=== PATIENT | female | born 1980 | race Caucasian/White ===

== ENCOUNTER 2021-11-07 09:09 | Outpatient (CLI) | payer BC, SELFPAY ==
--- NOTE | ~2021-11-07 | US_ITS ---
US abdomen limited INDICATION: Right upper quadrant pain. Epigastric pain. PROCEDURE: Realtime right upper abdominal ultrasound. COMPARISON: No prior studies for comparison. FINDINGS: The pancreas is normal without focal mass or pancreatic ductal dilation. Liver echotexture is increased, consistent with fatty infiltration. There is normal directional flow in the portal ve in. There are multiple gallstones. Common bile duct measures 5 mm. No sonographic Spence's sign. IMPRESSION: 1: Cholelithiasis. 2: Hepatic steatosis. Reviewed, dictated and finalized at location A. [facility] PATH[facility]
== END 2021-11-07 09:10 | disposition home or self-care (01) ==
LOC: ANHIMG 09:16
PROVIDERS: Visit Provider Nurse Practitioner Family
DX: R10.9 Unspecified abdominal pain (principal); K80.20 Calculus of gallbladder without cholecystitis without obstruction; K76.0 Fatty (change of) liver, not elsewhere classified
CPT/HCPCS: 76705

== ENCOUNTER → 2021-11-28 03:16 | Outpatient (CLI) | payer BC, SELFPAY ==
[2021-11-28 11:02] LABS: SARS-CoV-2 RNA PCR Negative
== END ==
PROVIDERS: Visit Provider Internal Medicine Gastroenterology
DX: Z01.812 Encounter for preprocedural laboratory examination (principal); Z20.822 Contact with and (suspected) exposure to COVID-19
CPT/HCPCS: C9803; U0003; U0005

== ENCOUNTER 2021-12-01 01:15 | Day surgery (SDC) | payer BC, SELFPAY ==
[2021-11-24 10:13] VITALS: BMI 35.2
--- NOTE | 2021-12-01 07:12 | WPDANESEPPF ---
Anes - Initial Pre Proc Eval Procedure: Operation Date: 12/01/21 11:00 Proposed Procedures p Esophagogastroduodenoscopy - Thiago Polanco MD <Willy Quesada, DO - Last Filed: 12/01/21 10:52> Date/Time: 12/01/21 07:12 <Willy Quesada DO - Last Filed: 12/01/21 10:52> Surgeon: Thiago Polanco MD <Willy Quesada DO - Last Filed: 12/01/21 10:52> Pre Op Diagnosis: gerd <Willy Quesada DO - Last Filed: 12/01/21 10:52> Patient Data Age: 41 Gender: F Height: 1.7 m Weight: 102.2 kg <Willy Quesada DO - Last Filed: 12/01/21 10:52> Allergies Allergy/AdvReac Type Severity Reaction Status Date / Time No Known Allergies Allergy Unknown Verified 12/01/21 10:37 <Willy Quesada DO - Last Filed: 12/01/21 10:52> Home Medications Medication Instructions Recorded Confirmed Type escitalopram oxalate 10 mg tablet 20 mg PO DAILY tablet 10/20/21 11/24/21 History omeprazole 20 mg capsule,delayed 20 mg PO DAILY 30 Days #30 cap 10/20/21 11/24/21 Rx release <Willy Quesada DO - Last Filed: 12/01/21 10:52> Patient hx anesthesia problems: none <Radha Gregory CRNA - Last Filed: 12/01/21 08:10> Family hx anesthesia problems: none <Radha Gregory CRNA - Last Filed: 12/01/21 08:10> Results Review: All pre-operative results and documents have been reviewed as part of the pre-operative evaluation. <Willy Quesada DO - Last Filed: 12/01/21 10:52> PMFSH Past Medical History Medical History: Medical History Anxiety Depression Encounter for IUD insertion 04/01/13 Encounter for IUD removal 05/08/13 GERD (gastroesophageal reflux disease) History of breast problem benign appearing breast calcifications/stable left breast asymmetry on diagnostic mammogram 2018 Screening mammogram, encounter for <Willy Quesada DO - Last Filed: 12/01/21 10:52> Surgical History Surgical History: Surgical History History of bilateral salpingectomy 02/20/19 History of endometrial ablation 02/20/19 hscope d&c/endometrial ablation/bilateral salpingectomy--menometrorrhagia, dysmenorrhea, desired sterilization History of hysteroscopy 01/23/19 d&c--menometrorrhagia, dysmenorrhea, enlarged uterus <Willy Quesada DO - Last Filed: 12/01/21 10:52> Family History Family History: Family History Grandparent Breast cancer maternal grandmother Malignant tumor of ovary maternal grandmother <Willy Quesada DO - Last Filed: 12/01/21 10:52> Social History Social History: Social History Smoking status: Never smoker Alcohol intake: current Drinks per week: 1 Alcohol use details: socially Substance use: never Substance use type: does not use Living arrangements: with family Additional living arrangements comments: spouse 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 Gender identity (if verbalized by the patient): Female Sexual Orientation (if Verbalized by the Patient): Straight or Heterosexual Spiritual care concerns: No <DO Nohemy Treadwell Last Filed: 12/01/21 10:52> Anes - Eval Final PreProcedure Day of Procedure 12/01/21 07:12 <Willy Quesada DO - Last Filed: 12/01/21 10:52> Patient weight: obese <Willy Quesada DO - Last Filed: 12/01/21 10:52> Heart: regular rate and rhythm <Willy Quesada DO - Last Filed: 12/01/21 10:52> Lungs: clear to auscultation and normal air movement <Willy Quesada DO - Last Filed: 12/01/21 10:52> Airway: Mallampati scale class II <Willy Quesada DO - Last Filed:
[2021-12-01 10:38] VITALS: BP 141/81; PULSE 67; RESP 18; TEMP 37; O2SAT 100
[2021-12-01] MEDS: LACTATED RINGERS 1,000 ML 150 ML IV CONT (10:51)
--- NOTE | 2021-12-01 10:56 | WPDGICN ---
Assessment and Plan Assessment and plan (1) GERD (gastroesophageal reflux disease): Code(s): K21.9 - Gastro-esophageal reflux disease without esophagitis Status: Inactive Assessment and Plan: Patient has a history of chronic GE reflux disease with some globus symptoms. Plan is for EGD to assess more thoroughly. Agree with anti-reflux measures and omeprazole 20mg p.o. daily. Further recommendations may be given after endoscopy. GI Consult Note Consult date/time: 12/01/21 10:56 HPI: Juany Terry is a 41 year old female Presents for EGD. . She gives a history of acid reflux with substernal heartburn and regurgitation for many years. She states symptoms will come and go. She states she currently is on a low-carbohydrate diet this appears to help these symptoms. She states previously she had a lump in the throat however she had no difficulty swallowing. This appears to have improved recently. Currently she takes omeprazole 20mg p.o. daily with apparent good results. Patient presents today for EGD because of chronic GE reflux disease. Review of Systems Review of Systems: All systems reviewed & are unremarkable except as noted in HPI and below PMFSH Past Medical History Medical History (Updated 12/01/21 @ 10:57 by Thiago Polanco MD) Anxiety Depression Encounter for IUD insertion 04/01/13 Encounter for IUD removal 05/08/13 GERD (gastroesophageal reflux disease) History of breast problem benign appearing breast calcifications/stable left breast asymmetry on diagnostic mammogram 2018 Screening mammogram, encounter for Surgical History Surgical History History of bilateral salpingectomy 02/20/19 History of endometrial ablation 02/20/19 hscope d&c/endometrial ablation/bilateral salpingectomy--menometrorrhagia, dysmenorrhea, desired sterilization History of hysteroscopy 01/23/19 d&c--menometrorrhagia, dysmenorrhea, enlarged uterus Family History Family History Grandparent Breast cancer maternal grandmother Malignant tumor of ovary maternal grandmother Social History Social History Smoking status: Never smoker Alcohol intake: current Drinks per week: 1 Alcohol use details: socially Substance use: never Substance use type: does not use Living arrangements: with family Additional living arrangements comments: spouse 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 Gender identity (if verbalized by the patient): Female Sexual Orientation (if Verbalized by the Patient): Straight or Heterosexual Spiritual care concerns: No Meds Home Medications and Allergies Home Medications Medication Instructions Recorded Confirmed Type escitalopram oxalate 10 mg tablet 20 mg PO DAILY tablet 10/20/21 11/24/21 History omeprazole 20 mg capsule,delayed 20 mg PO DAILY 30 Days #30 cap 10/20/21 11/24/21 Rx release Allergies Allergy/AdvReac Type Severity Reaction Status Date / Time No Known Allergies Allergy Unknown Verified 12/01/21 10:37 Vital Signs Vital Signs - 24 hr 12/01/21 10:38 Temperature 98.6 F Pulse Rate 67 Respiratory Rate 18 Blood Pressure 141/81 H Pulse Oximetry 100 Exam Narrative: Physical exam reveals patient to be alert. Vital signs stable. HEENT exam is unremarkable. Patient is anicteric. Lungs are clear to auscultation and percussion. Heart is without murmur or extra sounds. Abdominal exam bowel sounds are present soft nontender with no organomegaly. Digital external rectal exam is normal.
[2021-12-01] MEDS: BENZOCAINE (*SP) 60 ML SPRAY CAN (HURRICAINE) 1 SPRAY MUCOUS MEM (12:32)
[2021-12-01 12:42] VITALS: BP 143/84; PULSE 64; RESP 14; O2SAT 100
[2021-12-01 12:52] VITALS: BP 151/87; PULSE 69; RESP 19; O2SAT 100
[2021-12-01 13:02] VITALS: BP 157/87; PULSE 68; RESP 21; O2SAT 100
== END 2021-12-01 13:14 | disposition home or self-care (01) ==
PROVIDERS: Visit Provider Internal Medicine Gastroenterology
PROC: 0DJ08ZZ Inspection of Upper Intestinal Tract, Via Natural or Artificial Opening Endoscopic (ICD-10-PCS; CPT 43235; principal; 2021-12-01 11:00)
DX: K21.9 Gastro-esophageal reflux disease without esophagitis (principal); F41.8 Other specified anxiety disorders
CPT/HCPCS: 43235; J2704; J7120